=== PATIENT | male | born 1950 | race Caucasian/White ===

== ENCOUNTER 2019-04-01 08:14 | Emergency (ER) | payer MEDICARE ==
[2019-04-01 08:35] VITALS: BP 139/99
--- NOTE | 2019-04-01 08:37 | UC ---
Hip/Pelvis Pain - HPI Summary HPI Summary: 68 y/o male presents to the urgent care c/o left hip pain, left knee and left elbow pain s/p fall last Monday03/30/2019. Pt reports he was getting into a store and slipped on a stone and fell onto the cement. He is very concerned since he has Hx of B/L hip replacement. Left hip was replaced about 5 years ago and Rt hip replaced 2 months ago. he has been doing physical therapy. He was able to walk w/o any difficulty after the fall. Even though he hasn't noticed any swelling or bruise, left hip pain has worsen when he walks radiating to the left knee. Pain is sharp at times 8/10 today. he has taken Tylenol PO to alleviate symptoms. He has PMHX of Gout and is not sure if he is having a gout flare up. He can move his elbow w/o any difficulty, but he feels pain w/ flexion. Pt denies fever, SOB, dizziness, numbness or tingling sensation over the extremities, lower back pain, flank pain, abdominal pain, SOB, chest pain, N /V/D. - History Of Current Complaint Chief Complaint: UCLowerExtremity Stated Complaint: S/P FALL(03/30/19)-LEFT HIP/ELBOW/KNEE INJURY Time Seen by Provider: 04/01/19 08:36 Hx Obtained From: Patient Onset/Duration: Sudden Onset, Lasting Days - 2 days, Still Present Timing: Constant Severity Initially: Moderate Severity Currently: Moderate Pain Intensity: 8 Pain Scale Used: 0-10 Numeric Location: Discrete At: - left hip. left elbow and left knee Character Of Pain: Aching Aggravating Factor(s): Other - walking Alleviating Factor(s): Rest, OTC Medications - Tylenol PO, last dose taken this morning Associated Signs And Symptoms: Positive: Knee Pain - left knee. Negative: Swelling, Redness, Bruising, Weakness, Dizziness, Abdominal Pain - Risk Factors Septic Arthritis Risk Factor: Negative - Allergies/Home Medications Allergies/Adverse Reactions: Allergies Allergy/AdvReac Type Severity Reaction Status Date / Time No Known Allergies Allergy Verified 04/01/19 08:35 Home Medications: Home Medications Allopurinol [Zyloprim 300 MG TAB] 300 mg PO DAILY 04/01/19 [History Confirmed ] Insulin REGULAR(*) 8 units SUBCUT AC 04/01/19 [History Confirmed 04/01/19] Metoclopramide HCl 5 mg PO DAILY 04/01/19 [History Confirmed 04/01/19] Milk Thistle 1,000 mg PO DAILY 04/01/19 [History Confirmed 04/01/19] Terazosin HCl 2 mg PO BEDTIME 04/01/19 [History Confirmed 04/01/19] Venlafaxine HCl 150 mg PO BID 04/01/19 [History Confirmed 04/01/19] clonazePAM [Clonazepam] 0.5 mg PO TID 04/01/19 [History Confirmed 04/01/19] PMH/Surg Hx/FS Hx/Imm Hx Previously Healthy: Yes Endocrine History: Diabetes, Dyslipidemia Other Endocrine History: Gout Cardiovascular History: Hypertension Respiratory History: COPD GI/ History: Gastroesophageal Reflux - Surgical History Surgical History: Yes Surgery Procedure, Year, and Place: 5 years ago c-sp surgery at [facility]. RIGHT SHOULDER SURGERY, MAY 2013. ESOPHOGUS REVISION 13 YRS AGO. Hip replacement 06/2014. Stomach surgery, 06/2017. left hip replacement-2018 - Family History Known Family History: Positive: Hypertension, Diabetes - Social History Occupation: Retired Lives: With Family Alcohol Use: None Substance Use Type: None Smoking Status (MU): Former Smoker Type: Cigars Amount Used/How Often: 1-2 cigars daily Have You Smoked in the Last Year: Yes Household Exposure Type: Cigars - Immunization History Most Recent Tetanus Shot: OVER 5 YEARS AGO Vaccination Up to Date: Yes Review of Systems All Other Systems Reviewed And Are Negative: Yes Constitutional: Positive: Negative Skin: Positive: Negative Eyes: Positive: Negative ENT: Positive: Negative Respiratory: Positive: Negative Cardiovascular: Positive: Negative Gastrointestinal: Positive: Negative Genitourinary: Positive: Negative Motor: Positive: Negative Neurovascular: Positive: Negative Musculoskeletal: Positive: Decreased ROM - left hip, left elbow and left knee s/ p fall, Other: - left hip, left elbow and left knee pain s/p fall Neurological: Positive: Negative Psychological: Positive: Negative Is Patient Immunocompromised?: No Physical Exam - Summary Physical Exam Summary: Vital Signs Reviewed: Yes Appearance: Well-Appearing, No Pain Distress, Well-Nourished old male w/o sitting in the examining table w/o any apparent pain distress Eyes:: sclera and conjunctiva clear without injection, drainage, exudates PERRLA , EOMI. ENT: Positive: Normal ENT inspection, Hearing grossly normal, Pharynx normal, TMs normal, Uvula midline Neck: Positive: Supple, Nontender, No Lymphadenopathy Respiratory: Positive: Chest non-tender, Lungs clear, Normal breath sounds, No respiratory distress Cardiovascular: Positive: RRR, No Murmur, Pulses Normal, Brisk Capillary Refill Abdomen Description: Positive: Nontender, No Organomegaly, Soft. Negative: CVA Tenderness (R), CVA Tenderness (L) Bowel Sounds: Positive: Present Musculoskeletal: Positive: Strength Intact, Other: - RT Hip: Pt is able to ambulate without difficulty or assistance, limp, or antalgic gait. No surface trauma, ecchymosis. No erythema, warmth. No deformity, crepitus, or obvious asymmetry of the RT hip. No Tenderness to palpation over the symphysis pubis, ischial bone, trochanter, SI notch, buttocks, quadriceps, femoral triangle, inguinal ligament. Point tenderness on Rt lateral side of the hip below the iliac crest. No inguinal lymphadenopathy. FROM limited due to pain. Distal motor and neurovascular status are intact. Neuro: Alert and oriented x 3. No acute neurological deficits. Speech is normal. Psychological: WNL Skin: Dry and warm Triage Information Reviewed: Yes Vital Signs: Initial Vital Signs Temp 98.1 F 04/01/19 08:27 Pulse 80 04/01/19 08:27 Resp 16 04/01/19 08:27 BP 139/99 04/01/19 08:27 Pulse Ox 97 04/01/19 08:27 Hip Injury Course/Dx - Course Course Of Treatment: 68 y/o male presents to the urgent care c/o left hip pain, left knee and left elbow pain s/p fall last Monday03/30/2019. Pt reports he was getting into a store and slipped on a stone and fell onto the cement. He is very concerned since he has Hx of B/L hip replacement. Left hip was replaced about 5 years ago and Rt hip replaced 2 months ago. he has been doing physical therapy. He was able to walk w/o any difficulty after the fall. Even though he hasn't noticed any swelling or bruise, left hip pain has worsen when he walks radiating to the left knee. Pain is sharp at times 8/10 today. he has taken Tylenol PO to alleviate symptoms. He has PMHX of Gout and is not sure if he is having a gout flare up. He can move his elbow w/o any difficulty, but he feels pain w/ flexion. Pt denies fever, SOB, dizziness, numbness or tingling sensation over the extremities, lower back pain, flank pain, abdominal pain, SOB, chest pain, N /V/D. Hx obtained. Pt is hemodynamically stable, A&OX3, vitals: WNL. He can ambulate w/o any difficulty. Left knee X-ray: IMPRESSION: 1. NO EVIDENCE FOR FRACTURE. 2. CHONDROCALCINOSIS AND MILD TO MODERATE OSTEOARTHRITIC CHANGE. Left hip X-ray,FINDINGS: The patient is status post total bilateral hip replacement surgery. The bones and prostheses are in normal alignment. No periprosthetic fracture is seen. There is a defect in the right iliac crest which is unchanged most consistent with postsurgical changes. IMPRESSION: NO EVIDENCE FOR FRACTURE , IF THE PATIENT'S SYMPTOMS PERSIST RECOMMEND FOLLOW-UP IMAGING. left elbow, IMPRESSION: #. Given presence of joint effusion in setting of injury a radiographic occult fracture is not excluded. Given the patient's age an occult fracture of the radial head would be most likely. #. Chondrocalcinosis. Consider crystal deposition disease most commonly CPPD arthropathy. Pt w/ full ROM of left elbow and not swelling or bruise observed. Mild tenderness over the lateral epicondyle. Pt's Left elbow immobilized with Yue bandage and shoulder sling and strongly advised to f/u w/ Orthopedic Dr Arroyo or his Orthopedic DR at [facility] for further management on possible occult fracture and hip contusion. Pt request Sheffield for night time. Pt Rx Sheffield PO to alleviate pain. Also advised RICE. Pt's BP is elevated today advised to decrease salt in diet, monitor BP and f/u with PCP for further management in his HTN, and gout. D/C instructions explained. Pt understood and agreed with plan of care. Pt left the clinic ambulating - Differential Dx/Diagnosis Differential Diagnosis/HQI/PQRI: Arthritis, Contusion, Fracture, Infection, Sprain, Strain, Other - GOUT Provider Diagnosis: Injury of left hip, Contusion of left hip, Osteoarthritis of left knee, Injury of left elbow, Effusion, left elbow, Uncontrolled hypertension Discharge ED - Sign-Out/Discharge Documenting (check all that apply): Patient Departure - D/c home All imaging exams completed and their final reports reviewed: Yes - Discharge Plan Condition: Stable Disposition: HOME Prescriptions: HYDROcodone/ACETAMIN 5-325 MG* [Sheffield 5-325 TAB*] 1 tab PO Q8H PRN #9 tab MDD [id number] PRN Reason: moderate pain Patient Education Materials: Elbow Fracture (ED), Hip Contusion (ED) Referrals: Edy Kahn MD [Primary Care Provider] - 2 Days Artis Arroyo MD [Medical Doctor] - 1 Day Additional Instructions: 1-Please take Sheffield and night time as directed and Tylenol PO during the day to alleviate pain and swelling. 2-Please apply ice, keep your shoulder immobilized with the shoulder sling 3- Please f/u with Orthopedic Dr Arroyo for further management on possible occult fracture in your left elbow and further evaluation and treatment on your hip contusion. 4-Your BP is elevated today. Please take your BP medications and decrease salt in your diet, monitor BP and if it continues to be elevated please f/u with your PCP for further management. If you develop chest pain, dizziness, visual disturbances, SOB, or severe CASILLAS please go immediately to the ER for further management - Billing Disposition and Condition Condition: STABLE Disposition: Home
== END 2019-04-01 10:11 | disposition home or self-care (01) ==
LOC: UCCORT 08:14
DX: S70.02XA Contusion of left hip, initial encounter (principal); S59.902A Unspecified injury of left elbow, initial encounter; M25.422 Effusion, left elbow; M11.262 Other chondrocalcinosis, left knee; M11.222 Other chondrocalcinosis, left elbow; I10 Essential (primary) hypertension; E11.9 Type 2 diabetes mellitus without complications; M10.9 Gout, unspecified; M17.12 Unilateral primary osteoarthritis, left knee; J44.9 Chronic obstructive pulmonary disease, unspecified; Z96.643 Presence of artificial hip joint, bilateral; Z79.899 Other long term (current) drug therapy; Z79.4 Long term (current) use of insulin; Z87.891 Personal history of nicotine dependence; W01.0XXA Fall on same level from slipping, tripping and stumbling without subsequent striking against object, initial encounter; Y92.9 Unspecified place or not applicable
CPT/HCPCS: 99213; G0463